=== PATIENT | male | born 1965 | race African-American/Black ===

== ENCOUNTER 2023-03-20 10:13 | Emergency (ER) | payer BC, OTHER ==
[~2023-03-20] VITALS: Ht 175.3 cm; Wt 113.0 kg
[2023-03-20 10:53] LABS: BASOPHILS % 0.5 % (0.0-2.0); HEMATOCRIT. 39.9 % (42.0-52.0); HEMOGLOBIN. 13.8 g/dL (14.0-18.0); LYMPHOCYTES % 29.8 % (20.0-50.0); MEAN CORPUSCULAR HEMOGLOBIN 33.2 pg (28.0-32.0); MEAN CORPUSCULAR VOLUME 95.9 fL (80.0-94.0); MEAN PLATELET VOLUME 7.9 fl (7.4-10.4); MONOCYTES % 7.8 % (2.0-8.0); NEUTROPHILS % 57.9 % (40.0-76.0); PLATELET 246 x1000/uL (130-400); RED BLOOD CELL COUNT 4.16 mill/uL (4.7-6.1); RED CELL DISTRIBUTION WIDTH 13.3 % (11.6-14.6)
[2023-03-20 11:05] LABS: CHLORIDE 109 mEq/L (98-107)
[2023-03-20 11:16] LABS: CLARITY URINE CLEAR (CLEAR); COLOR URINE YELLOW (YELLOW); KETONES URINE NEGATIVE (NEGATIVE); LEUKOCYTE ESTERASE URINE NEGATIVE (NEGATIVE); NITRITE URINE NEGATIVE (NEGATIVE); OCCULT BLOOD URINE NEGATIVE (NEGATIVE); PH URINE 5.5 (4.5-8.0); PROTEIN URINE NEGATIVE (NEGATIVE); SPECIFIC GRAVITY URINE 1.017 (1.005-1.030); UROBILINOGEN URINE 0.2 E.U./dL (0.2-1.0)
[2023-03-20 13:45] VITALS: BP 168/89
[2023-03-20] MEDS ORDERED: KETOROLAC 60MG/2ML VIAL IM ONE (13:45)
[2023-03-20] MEDS ORDERED: MORPHINE SULFATE 10 MG/ML CPJ IM ONE (13:45)
[2023-03-20] MEDS ORDERED: IBUP-2028 MT (16:22)
[2023-03-20] MEDS ORDERED: MORP15TA67 MT (16:22)
[2023-03-20] MEDS ORDERED: TOPUD PO (16:22)
== END 2023-03-20 16:49 | disposition home or self-care (01) ==
LOC: ER 10:51
DX: K46.9 Unspecified abdominal hernia without obstruction or gangrene (principal)
CPT/HCPCS: 36415; 74176; 80053; 81003; 83690; 85025; 96372; 99285; J1885; J2270; Z7610